=== PATIENT | male | born 1975 | race Caucasian/White ===

== ENCOUNTER 2017-08-04 18:35 | Emergency (ER) | payer BC, OTHER ==
[~2017-08-04] VITALS: Ht 195.6 cm; Wt 145.1 kg
[2017-08-04 18:53] VITALS: BP 201/89
[2017-08-04] MEDS ORDERED: CLIN300C8 PO (18:55)
[2017-08-04] MEDS ORDERED: HYDR-971 PO (18:55)
--- NOTE | 2017-08-04 18:55 | PHYS DOC ---
Past Medical History Past Medical History: GERD, Hypertension Past Surgical History: Tonsillectomy Alcohol Use: None Drug Use: None Adult General Chief Complaint Chief Complaint: DENTAL PROBLEM HPI HPI Patient is a 42 year old male presents to the ED complaining of dental pain 2 days. States he has a history of dental caries. Complains of pain to right upper molars. Previous crown placement. Describes the pain as sharp. Rates the pain as 8 out of 10. States Motrin at home has improved his pain. Denies tongue swelling, difficulty swallowing, difficulty talking, chest pain, shortness of breath or fevers. Review of Systems Review of Systems Constitutional: Denies fever or chills [] Eyes: Denies change in visual acuity, redness, or eye pain [] HENT: Denies nasal congestion or sore throat [] Respiratory: Denies cough or shortness of breath [] Cardiovascular: No additional information not addressed in HPI [] GI: Denies abdominal pain, nausea, vomiting, bloody stools or diarrhea [] : Denies dysuria or hematuria [] Musculoskeletal: Denies back pain or joint pain [] Integument: Denies rash or skin lesions [] Neurologic: Denies headache, focal weakness or sensory changes [] Endocrine: Denies polyuria or polydipsia [] All other systems were reviewed and found to be within normal limits, except as documented in this note. Allergies Allergies Allergies Coded Allergies Type Severity Reaction Last Updated Verified No Known Drug Allergies 07/16/14 No Physical Exam Physical Exam Constitutional: Well developed, well nourished, no acute distress, non-toxic appearance. [] HENT: Normocephalic, atraumatic, bilateral external ears normal, oropharynx moist, no oral exudates, nose normal. DENTAL CARIES TO RIGHT UPPER MOLARS. MINIMAL SWELLING. NO ABSCESS OR FLUCTUANCE.[] Eyes: PERRLA, EOMI, conjunctiva normal, no discharge. [] Neck: Normal range of motion, no tenderness, supple, no stridor. [] Cardiovascular:Heart rate regular rhythm, no murmur [] Lungs & Thorax: Bilateral breath sounds clear to auscultation [] Neurologic: Alert and oriented X 3, normal motor function, normal sensory function, no focal deficits noted. [] Psychologic: Affect normal, judgement normal, mood normal. [] Current Patient Data Vital Signs Vital Signs Date Time Temp Pulse Resp B/P (MAP) Pulse Ox O2 Delivery O2 Flow Rate FiO2 08/04/17 18:53 98.7 91 14 97 Room Air 98.7 EKG EKG [] Radiology/Procedures Radiology/Procedures [] Course & Med Decision Making Course & Med Decision Making Pertinent Labs and Imaging studies reviewed. (See chart for details) []Will treat with clindamycin and analgesics outpatient. Discussed follow-up with dentist early next week. Provided contact information/education. Patient states he has a dentist and will make an appointment for next week. Patient has taken clindamycin the past without complications. Discussed reasons to return to the ED. Patient understands and agrees with plan. Dragon Disclaimer Dragon Disclaimer This electronic medical record was generated, in whole or in part, using a voice recognition dictation system. Departure Departure Impression: Primary Impression: Dental caries Additional Impression: Pain, dental Disposition: HOME, SELF-CARE Condition: STABLE Referrals: NON,STAFF (PCP) Patient Instructions: Dental Abscess, Dental Caries Scripts Hydrocodone/Apap 5-325 (NORCO 5-325 TABLET) 1 Each Tablet 1 TAB PO TID, #10 TAB Prov: GRETEL RADFORD 08/04/17 Clindamycin Hcl (CLINDAMYCIN HCL) 300 Mg Capsule 300 MG PO QID for 10 Days, #40 CAP Prov: GRETEL RADFORD 08/04/17 Problem Qualifiers GRETEL RADFORD Aug 04, 2017 18:55
== END 2017-08-04 19:10 | disposition home or self-care (01) ==
LOC: ER 18:35
DX: K02.9 Dental caries, unspecified (principal); I10 Essential (primary) hypertension; K21.9 Gastro-esophageal reflux disease without esophagitis
CPT/HCPCS: 99283

== ENCOUNTER 2021-01-11 13:38 | Emergency (ER) | payer OTHER, BC ==
[~2021-01-11] VITALS: Ht 195.6 cm; Wt 145.4 kg
[~2021-01-11 13:38] MED LIST: CLIN300C9 PO; HYDR-3164 PO
[2021-01-11 13:45] VITALS: BP 157/107
[2021-01-11] MEDS ORDERED: IBUPROFEN 200 MG TABLET. PO ONE (15:00)
[2021-01-11] MEDS ORDERED: ACETAMINOPHEN 500 MG TABLET PO ONE (15:00)
--- NOTE | 2021-01-11 15:19 | RAD ---
Axial CT images of the head were obtained without IV contrast. Comparison: None. Indication: Pain after trauma to back of the head Findings: No mass effect or hemorrhage is seen. The ventricles are not enlarged or effaced. No midline shift is noted. There is no intra or extra axial fluid collection. No bony or soft tissue abnormality is seen. The visualized paranasal sinuses are clear. Impression: 1. No acute intracranial process seen on non- contrast head CT. Exposure: One or more of the following individualized dose reduction techniques were utilized for thi s examination: 1. Automated exposure control 2. Adjustment of the mA and/or kV according to patient size 3. Use of iterative reconstruction technique Electronically signed by: Rodrigo Campos MD (01/11/2021 3:17 PM) [id number]
[2021-01-11] MEDS ORDERED: IBUP-1007 PO (16:20)
--- NOTE | 2021-01-11 16:21 | PHYS DOC ---
Past Medical History Past Medical History: GERD, Hypertension Past Surgical History: Tonsillectomy Smoking Status: Never Smoker Alcohol Use: None Drug Use: None General Adult EDM: Chief Complaint: HEAD INJURY/TRAUMA HPI: HPI: Patient is a 45 year old male presents to the emergency department complaining that a 2-1/2 gallon bucket of ice cream fell off a shelf in a freezer and hit him in the back of the neck and head suddenly night at approximately 7:20 PM. Patient denies loss of consciousness. Patient complains of pain to the back of his neck and head. Patient denies any numbness or tingling down his extremities. Patient denies any neuro deficits. Denies headaches, denies visual changes. Patient denies any other physical complaints or physical concerns. Patient reports a 3-4/10 pain on a 1-10 pain scale. Patient states she has not taken anything for the pain today. Patient denies allergies to medications, states he takes amlodipine, benazepril, and omeprazole at home. Patient reports a past surgical history of septal surgery when he was 21 years old and tonsillectomy when he was 22 years old. Review of Systems: Review of Systems: 14 body systems of review of systems have been reviewed. See HPI for pertinent positives and negative responses, otherwise all other systems are negative, nonpertinent or noncontributory. Heart Score: C/O Chest Pain: No Risk Factors: Risk Factors: DM, Current or recent (<one month) smoker, HTN, HLP, family history of CAD, obesity. Risk Scores: Score 0 - 3: 2.5% MACE over next 6 weeks - Discharge Home Score 4 - 6: 20.3% MACE over next 6 weeks - Admit for Clinical Observation Score 7 - 10: 72.7% MACE over next 6 weeks - Early Invasive Strategies Current Medications: Current Medications Medications (Trade) Dose Ordered Sig/Ancelmo Start Time Stop Time Status Last Admin Dose Admin Acetaminophen (Tylenol) 1,000 mg 1X ONCE 01/11/21 15:00 01/11/21 15:01 DC 01/11/21 15:49 1,000 MG Ibuprofen (Motrin) 600 mg 1X ONCE 01/11/21 15:00 01/11/21 15:01 DC 01/11/21 15:48 600 MG Allergies: Allergies: Allergies Coded Allergies Type Severity Reaction Last Updated Verified No Known Drug Allergies 07/16/14 No Physical Exam: PE: Constitutional: Well developed, well nourished, no acute distress, non-toxic appearance. 45-year-old male in no apparent distress. HENT: Normocephalic, atraumatic, bilateral external ears normal, oropharynx moist, no oral exudates, nose normal. No skull depressions or areas of ecchymosis or contusions of the skull appreciated. No lymphadenopathy of the head or neck appreciated. Eyes: PERRLA, EOMI, conjunctiva normal, no discharge. Neck: Normal range of motion, no tenderness, supple, no stridor. No step-offs of the C-spine, no meningismus signs, no nuchal rigidity appreciated. Cardiovascular:Heart rate regular rhythm, no murmur Lungs & Thorax: Bilateral breath sounds clear to auscultation Abdomen: Bowel sounds normal, soft, no tenderness, no masses, no pulsatile masses. Skin: Warm, dry, no erythema, no rash. Back: No tenderness, no CVA tenderness. Extremities: No tenderness, no cyanosis, no clubbing, ROM intact, no edema. Neurologic: Alert and oriented X 3, normal motor function, normal sensory function, no focal deficits noted. Psychologic: Affect normal, judgement normal, mood normal. Current Patient Data: Vital Signs: Vital Signs Date Time Temp Pulse Resp B/P (MAP) Pulse Ox O2 Delivery O2 Flow Rate FiO2 01/11/21 13:45 98.1 75 18 157/107 (124) 97 Room Air 98.1 EKG: EKG: [] Radiology/Procedures: Radiology/Procedures: PATIENT: DANIELLE CACERES ACCOUNT: [id number] : 1975 LOCATION: ER AGE: 45 SEX: M EXAM STATUS: REG ER ORD. PHYSICIAN: VAHE ART APRN REASON: BLUNT TRAUMA TO BACK OF HEAD AND NECK PROCEDURE: CT HEAD AND CERVICAL SPINE WO Axial CT images of the head were obtained without IV contrast. Comparison: None. Indication: Pain after trauma to back of the head Findings: No mass effect or hemorrhage is seen. The ventricles are not enlarged or effaced. No midline shift is noted. There is no intra or extra axial fluid collection. No bony or soft tissue abnormality is seen. The visualized paranasal sinuses are clear. Impression: 1. No acute intracranial process seen on non- contrast head CT. Exposure: One or more of the following individualized dose reduction techniques were utilized for this examination: 1. Automated exposure control 2. Adjustment of the mA and/or kV according to patient size 3. Use of iterative reconstruction technique Electronically signed by: Rodrigo Campos MD (01/11/2021 3:17 PM) [id number] DICTATED and SIGNED BY: RODRIGO CAMPOS MD DATE: 01/11/21 [id number] 0 Course & Med Decision Making: Course & Med Decision Making Pertinent Labs and Imaging studies reviewed. (See chart for details) 45-year-old male, vital signs reviewed, presents emergency department concerning back of head and neck pain after a bucket of ice cream fell on his head and neck while at work last Sunday. Physical examination concerning for possible head and or neck injury, a c-collar was ordered to be placed, CT head and C- spine were ordered, p.o. pain medications ordered in the ED. CT head and C-spine read negative for acute process per house radiologist or potation, discussed findings with patient, discussed we will send home with a prescription for ibuprofen, strict instructions to follow-up with [employer] work comp tomorrow, will give work excuse to return on Sunday unless otherwise directed by his work comp physician. Discussed with patient using ice packs 30 minutes on and 30 minutes off while awake for pain and discomfort as well. Patient gave verbal understanding of discharge home instructions, ice pack use, follow-up with [employer] tomorrow, return to ER precautions and concerns, patient had no further questions or concerns and was discharged home without incident. Dragon Disclaimer: E[place] Disclaimer: This electronic medical record was generated, in whole or in part, using a voice recognition dictation system. Departure Departure Impression: Primary Impression: Contusion of head and neck region Disposition: 01 HOME / SELF CARE / HOMELESS Condition: GOOD Referrals: FARHAT MORENO MD (PCP) Patient Instructions: Contusion Additional Instructions: You are seen in the emergency department today for head neck pain after a bucket of ice cream fell onto that area of your body. The CT of your head and C-spine were negative for fractures or concerning injury. Please use prescribed ibup rofen for pain and discomfort, also place ice packs to your head and neck sore areas 30 minutes on and 30 minutes off for the next 24 to 48 hours as we discussed. Please follow-up with your [facility] [employer] work comp physician tomorrow for reevaluation. I have given you a work excuse to return to work on Sunday however please follow with the work comp physicians recommendations. Please return to the emergency department for worsening symptoms or other concerns. EMERGENCY DEPARTMENT GENERAL DISCHARGE INSTRUCTIONS Thank you for coming to [facility] Emergency Department (ED) today and trusting us with you care. We trust that you had a positive experience in our Emergency Department. If you wish to speak to the department management, you may call the Director at [phone]. YOUR FOLLOW UP INSTRUCTIONS ARE FOLLOWS: 1. Do you have a private Doctor? If you do not have a private doctor, please ask for a resource list of physicians or clinics that may be able to assist you with follow up care. 2. The Emergency Physicain has interpreted your x-rays. The X-Ray specialist will also review them. If there is a change in the findings, you will be notified in 48 hours when at all possible. 3. A lab test or culture has been done, your results will be reviewed and you will be notified if you need a change in treatment. ADDITIONAL INSTRUCTIONS AND INFORMATION: 1. Your care today has been supervised by a physician who is specially trained in emergency care. Many problems require more than one evaluation for a complete diagnosis and treatment. We recommend that you schedule your follow up appointment as recommended to ensure complete treatment of you illness or injury. If you are unable to obtain follow up care and continue to have a problem, or if your condition worsens, we recommend that you return to the ED. 2. We are not able to safely determine your condition over the phone nor are we able to give sound medical advice over the phone. For these safety reasons, if you call for medical advice we will ask you to come to the ED for further evaluation. 3. If you have any questions regarding these discharge instructions please call the ED at [phone]. SAFETY INFORMATION: In the interest of safety, wellness, and injury prevention; we encourage you to wear your sealbelt, if you smoke; quite smoking, and we encourage family to use a protective helmet for bicycling and other sporting events that present an increased risk for head injury. IF YOUR SYMPTOMS WORSEN OR NEW SYMPTOMS DEVELOP, OR YOU HAVE CONCERNS ABOUT YOUR CONDITION; OR IF YOUR CONDITION WORSENS WHILE YOU ARE WAITING FOR YOUR FOLLOW UP AP POINTMENT; EITHER CONTACT YOUR PRIMARY CARE DOCTOR, THE PHYSICIAN WHOSE NAME AND NUMBER YOU WERE GIVEN, OR RETURN TO THE ED IMMEDIATELY. Scripts Ibuprofen (IBUPROFEN) 600 Mg Tablet 600 MG PO PRN Q6HRS PRN for INFLAMMATION, #20 TAB 0 Refills Prov: VAHE ART APRN 01/11/21 VAHE ART APRN January 11, 2021 16:21
== END 2021-01-11 16:36 | disposition home or self-care (01) ==
LOC: ER 13:38
DX: S00.93XA Contusion of unspecified part of head, initial encounter (principal); S10.93XA Contusion of unspecified part of neck, initial encounter; K21.9 Gastro-esophageal reflux disease without esophagitis; I10 Essential (primary) hypertension; W18.09XA Striking against other object with subsequent fall, initial encounter; Y93.89 Activity, other specified; Y92.89 Other specified places as the place of occurrence of the external cause; Y99.8 Other external cause status
CPT/HCPCS: 70450; 72125; 99285